=== PATIENT | female | born 1960 | race Hispanic/Latino ===

== ENCOUNTER → 2021-07-31 | Outpatient (CLI) | payer OTHER ==
[~2021-07-31] MED LIST: CLON0.1T PO; CYCL5TAB PO; ENAL10TA18 PO; HYDR25TA PO; LEVO50TA4 PO; LEVO75TA4 PO; MILN100T PO; OXYGEN NS; SIMV-43 PO; TRAM50TA4 PO
[2021-07-31 09:36] LABS: BASOPHILS % (AUTO) 0.5 % (0.0-5.0); EOSINOPHILS % (AUTO) 1.8 % (0.0-8.0); HEMATOCRIT 41.7 % (36-48); LYMPHOCYTES % (AUTO) 23.5 % (21.0-51.0); MEAN CORPUSCULAR HEMOGLOBIN 28.3 pg (27.0-33.0); MEAN CORPUSCULAR HGB CONC 31.2 g/dL (32.0-36.0); MEAN CORPUSCULAR VOLUME 90.7 fL (79-99); MONOCYTES % (AUTO) 8.1 % (3.0-13.0); NEUTROPHILS % (AUTO) 65.9 % (40.0-77.0); PLATELET COUNT (AUTO) 233 K/uL (130-400); RED CELL DISTRIBUTION WIDTH 13.2 % (11.0-15.5); WHITE BLOOD COUNT (AUTO) 5.7 K/uL (4.8-10.8)
[2021-07-31 10:00] LABS: BILIRUBIN,TOTAL 0.3 mg/dL (0.2-1.0); CREATININE 1.2 mg/dL (0.5-1.5); POTASSIUM 4.8 mmol/L (3.5-5.1); THYROID STIMULATING HORMONE 0.94 uIU/mL (0.36-3.74); TOTAL PROTEIN, SERUM 7.9 g/dL (6.0-8.3)
== END | disposition home or self-care (01) ==
LOC: RAH 08:43
PROVIDERS: ATTEND Internal Medicine
DX: M43.16 Spondylolisthesis, lumbar region (principal); M48.061 Spinal stenosis, lumbar region without neurogenic claudication; I10 Essential (primary) hypertension; E78.2 Mixed hyperlipidemia; R73.01 Impaired fasting glucose; M79.7 Fibromyalgia; G57.02 Lesion of sciatic nerve, left lower limb
CPT/HCPCS: 36415; 72100; 80053; 80061; 82043; 83036; 84439; 84443; 84481; 85025

== ENCOUNTER 2023-02-24 15:43 | Observation (INO) | payer OTHER ==
[~2023-02-24] VITALS: Ht 162.6 cm; Wt 93.3 kg
[~2023-02-24 15:43] MED LIST changes: +ENAL-89 PO; -ENAL10TA18 PO
[2023-02-24] MEDS ORDERED: ONDANSETRON 4MG INJ IV PRN (19:30)
[2023-02-24] MEDS ORDERED: KETOROLAC 15MG/ML VIAL (15MG/ML) IV PRN (19:30)
[2023-02-24 20:19] LABS: BASOPHILS # (AUTO) 0.02 K/uL (0.00-0.20); BASOPHILS % (AUTO) 0.2 % (0.0-5.0); EOSINOPHILS # (AUTO) 0.19 K/uL (0.00-0.70); EOSINOPHILS % (AUTO) 1.6 % (0.0-8.0); HEMATOCRIT 41.5 % (36-48); IMMATURE GRANULOCYTE ABSOLUTE 0.03 K/uL (0-1); LYMPHOCYTES # (AUTO) 3.8 K/uL (1.0-4.8); LYMPHOCYTES % (AUTO) 31.8 % (21.0-51.0); MEAN CORPUSCULAR HGB CONC 31.6 g/dL (32.0-36.0); MONOCYTES # (AUTO) 0.9 K/uL (0.1-1.0); MONOCYTES % (AUTO) 7.6 % (3.0-13.0); NEUTROPHILS # (AUTO) 6.9 K/uL (1.8-7.7); NEUTROPHILS % (AUTO) 58.5 % (40.0-77.0); PLATELET COUNT (AUTO) 222 K/uL (130-400); RED BLOOD CELL COUNT(AUTO) 4.51 MIL/uL (4.00-5.50); RED CELL DISTRIBUTION WIDTH 15.1 % (11.0-15.5); WHITE BLOOD COUNT (AUTO) 11.8 K/uL (4.8-10.8)
[2023-02-24 20:38] LABS: ALBUMIN 3.3 g/dL (3.5-5.0); BILIRUBIN,TOTAL 0.5 mg/dL (0.2-1.0); CREATININE 1.1 mg/dL (0.5-1.5); POTASSIUM 4.7 mmol/L (3.5-5.1); TOTAL PROTEIN, SERUM 6.5 g/dL (6.0-8.3)
[2023-02-24] MEDS ORDERED: FAMOTIDINE 20MG VIAL IV SCH (21:00)
[2023-02-24 21:15] VITALS: BP 143/74; PULSE 84; RESP 20; O2SAT 97
[2023-02-24 21:30] LABS: ERYTHROCYTE SEDIMENTATION RATE 3 MM/HR (0-30)
[2023-02-24] MEDS ORDERED: LEVO75TA10 PO (21:30)
[2023-02-24] MEDS ORDERED: ROSU10TA28 PO (21:30)
[2023-02-24] MEDS ORDERED: MILN100T PO (21:30)
[2023-02-24] MEDS ORDERED: BISA-72 PO (21:30)
[2023-02-24] MEDS ORDERED: PRED20TA3 PO (21:30)
[2023-02-24] MEDS ORDERED: ENAL-89 PO (21:30)
[2023-02-24] MEDS ORDERED: CYCL-309 PO (21:30)
[2023-02-24] MEDS ORDERED: ONDA4TAB10 PO (21:30)
[2023-02-24 23:50] VITALS: BP 123/66; PULSE 80; RESP 18
[2023-02-25 04:00] VITALS: BP 117/79; PULSE 78; RESP 18
[2023-02-25 04:46] LABS: BASOPHILS # (AUTO) 0.01 K/uL (0.00-0.20); BASOPHILS % (AUTO) 0.1 % (0.0-5.0); EOSINOPHILS # (AUTO) 0.28 K/uL (0.00-0.70); HEMATOCRIT 40.2 % (36-48); IMMATURE GRANULOCYTE ABSOLUTE 0.03 K/uL (0-1); LYMPHOCYTES # (AUTO) 2.9 K/uL (1.0-4.8); LYMPHOCYTES % (AUTO) 31.3 % (21.0-51.0); MEAN CORPUSCULAR HEMOGLOBIN 29.1 pg (27.0-33.0); MEAN CORPUSCULAR HGB CONC 31.8 g/dL (32.0-36.0); MEAN CORPUSCULAR VOLUME 91.4 fL (79-99); MONOCYTES # (AUTO) 0.7 K/uL (0.1-1.0); MONOCYTES % (AUTO) 7.6 % (3.0-13.0); NEUTROPHILS # (AUTO) 5.4 K/uL (1.8-7.7); NEUTROPHILS % (AUTO) 57.7 % (40.0-77.0); PLATELET COUNT (AUTO) 231 K/uL (130-400); RED CELL DISTRIBUTION WIDTH 15.2 % (11.0-15.5); WHITE BLOOD COUNT (AUTO) 9.3 K/uL (4.8-10.8)
[2023-02-25 05:26] LABS: ALBUMIN 3.2 g/dL (3.5-5.0); BILIRUBIN,TOTAL 0.6 mg/dL (0.2-1.0); POTASSIUM 4.3 mmol/L (3.5-5.1); TOTAL PROTEIN, SERUM 6.2 g/dL (6.0-8.3)
[2023-02-25] MEDS: 0.9%NACL 1000ML 1,000 ML IV SCH (06:30)
[2023-02-25 08:00] VITALS: BP 114/74; PULSE 82; RESP 18; O2SAT 96
[2023-02-25] MEDS ORDERED: LIDOCAINE 4% ADH..PATCH TP ONE ×2 (10:00→16:30)
[2023-02-25] MEDS ORDERED: PREDNISONE 20 MG TABLET PO ONE (10:30)
[2023-02-25] MEDS ORDERED: PANTOPRAZOLE 40 MG/VIAL IVP ONE ×2 (11:00→17:44)
[2023-02-25] MEDS ORDERED: ASPIRIN 81 MG EC TAB PO ONE ×2 (11:00→18:00)
[2023-02-25 11:28] VITALS: BP 148/80; PULSE 93; RESP 17
[2023-02-25 15:17] LABS: ADD UA MICROSCOPIC YES; APPEARANCE,URINE CLEAR (CLEAR); BILIRUBIN,URINE NEGATIVE (NEGATIVE); COLOR,URINE LIGHT-YELLOW (YELLOW); GLUCOSE, URINE (UA) NEGATIVE (NEGATIVE); KETONES,URINE NEGATIVE (NEGATIVE); LEUKOCYTE ESTERASE ,URINE 500 Leu/uL (NEGATIVE); NITRATE,URINE NEGATIVE (NEGATIVE); OCCULT BLOOD,URINE NEGATIVE (NEGATIVE); PROTEIN,URINE NEGATIVE (NEGATIVE); UROBILINOGEN,URINE 0.2 mg/dL (0.2-1.0)
[2023-02-25 15:19] LABS: BACTERIA,URINE RARE /HPF (None Seen); MUCUS,URINE RARE LPF (None Seen); NON-SQUAMOUS EPITHELIAL CELL <1 /HPF (0-2); SQUAMOUS EPITHELIAL CELL,UR FEW /HPF (0-2)
[2023-02-25 15:31] VITALS: BP 142/69; PULSE 94; RESP 18
[2023-02-25 20:00] VITALS: BP 130/67; PULSE 89; RESP 18; O2SAT 96
[2023-02-25] MEDS: ENALAPRIL MALEATE 10 MG TABLET PO SCH (20:56)
[2023-02-25] MEDS ORDERED: ATORVASTATIN 20 MG TABLET PO SCH (21:00)
[2023-02-25] MEDS ORDERED: MILNACIPRAN HCL 100 MG PO SCH (21:00)
[2023-02-26] VITALS: BP 113/55; PULSE 83; RESP 16
[2023-02-26 04:00] VITALS: BP 118/62; PULSE 85; RESP 17
[2023-02-26 04:13] LABS: HEMATOCRIT 45.2 % (36-48); MEAN CORPUSCULAR HEMOGLOBIN 29.2 pg (27.0-33.0); MEAN CORPUSCULAR HGB CONC 31.6 g/dL (32.0-36.0); MEAN CORPUSCULAR VOLUME 92.4 fL (79-99); RED BLOOD CELL COUNT(AUTO) 4.89 MIL/uL (4.00-5.50); RED CELL DISTRIBUTION WIDTH 15.1 % (11.0-15.5); WHITE BLOOD COUNT (AUTO) 10.1 K/uL (4.8-10.8)
[2023-02-26 04:25] LABS: CREATININE 1.2 mg/dL (0.5-1.5); POTASSIUM 4.3 mmol/L (3.5-5.1)
[2023-02-26] MEDS ORDERED: LEVOTHYROXINE 75 MCG TABLET PO SCH (07:30)
[2023-02-26 07:51] VITALS: BP 105/57; PULSE 82; RESP 18
[2023-02-26 08:00] VITALS: O2SAT 96
[2023-02-26] MEDS: ENALAPRIL MALEATE 10 MG TABLET PO SCH (08:59)
[2023-02-26] MEDS ORDERED: PREDNISONE 20 MG TABLET PO SCH (09:00)
[2023-02-26] MEDS ORDERED: NON-FORMULARY MEDICATION 1 EACH (Rosuvastatin Calcium 10 MG) PO SCH (09:00)
[2023-02-26] MEDS ORDERED: CEFTRIAXONE 1G VIAL IVPB ONE (09:00)
[2023-02-26] MEDS ORDERED: ASPIRIN 81 MG EC TAB PO ONE (09:00)
[2023-02-26] MEDS ORDERED: PANTOPRAZOLE 40 MG/VIAL IVP ONE (09:00)
[2023-02-26] MEDS ORDERED: CEPH500C2 PO (09:05)
[2023-02-26] MEDS ORDERED: AEC81 PO (09:05)
[2023-02-26] MEDS ORDERED: PANT40TA54 PO (09:05)
[2023-02-26] MEDS: 0.9%NACL 1000ML 1,000 ML IV SCH (09:24)
[2023-02-26 11:35] VITALS: BP 162/81; PULSE 99; RESP 19
== END 2023-02-26 13:45 | disposition home or self-care (01) ==
LOC: EDH 15:43 → EDHIP 19:28 → 4CH 21:01
PROVIDERS: ADMIT Hospitalist; ATTEND Hospitalist
DX: M31.6 Other giant cell arteritis (principal); N39.0 Urinary tract infection, site not specified; E66.9 Obesity, unspecified; M79.7 Fibromyalgia; E03.9 Hypothyroidism, unspecified; R53.81 Other malaise; H92.02 Otalgia, left ear; M54.81 Occipital neuralgia; G35 Multiple sclerosis; H53.8 Other visual disturbances; R20.2 Paresthesia of skin; R20.0 Anesthesia of skin; E78.00 Pure hypercholesterolemia, unspecified; Z88.8 Allergy status to other drugs, medicaments and biological substances; Z68.34 Body mass index [BMI] 34.0-34.9, adult
CPT/HCPCS: 96374; 99284; 80053 ×2; 85025 ×2; 85651; 86140; 36415 ×3; 70450; 96361 ×3; 96375 ×2; 87077; 87088; 87186; 82306; 81001; 93880; 97161; 97116; 92610; 96376; 80048; 85027; G0378 ×42; J3490; C9113 ×2; J0696